=== PATIENT | female | born 1935 | race Caucasian/White ===

== ENCOUNTER 2016-08-02 07:00 | Day surgery (SDC) | payer OTHER, MEDICARE ==
[2016-08-02 07:44] VITALS: BMI 23.2
[2016-08-02 08:48] VITALS: TEMP 97.6
[2016-08-02 12:18] VITALS: BP 149/78; PULSE 78
--- NOTE | 2016-08-03 13:40 | PATH ---
Surgical Pathology Report Patient Name: RICARDO BIRCH [facility]. Rec. #: [id number] /Age/Gender: 1935 (Age: 81) / F Account: [id number] Location: U-ENDOSCOPY Taken: 08/02/2016 Received: 08/02/2016 Reported: 08/03/2016 Physicians: Lela Cox M.D. Specimen(s) Received BX SITE OF PREVIOUS ADENOMA Clinical History Adenoma surveillance Diverticulosis Final Diagnosis COLON, PREVIOUS ADENOMA BIOPSY SITE, BIOPSY: FRAGMENTS OF COLONIC MUCOSA WITH SURFACE HYPERPLASTIC CHANGE AND LAMINA PROPRIA FIBROSIS, SUGGESTIVE OF SCAR FORMATION. NO ADENOMA/DYSPLASIA IDENTIFIED. Electronically Signed Jose Cruz Gallego M.D. Gross Description Received in formalin, labeled "biopsy site of previous adenoma" are 3 figueroa, irregular portions of soft tissue ranging from 0.1-0.3 cm in greatest dimension. The specimens are submitted in toto in one cassette. /08/02/201608/02/2016
== END 2016-08-02 12:30 | disposition home or self-care (01) ==
LOC: JASU-ENDO 07:00
PROVIDERS: ATTEND Internal Medicine Gastroenterology
PROC: 0DBP8ZX Excision of Rectum, Via Natural or Artificial Opening Endoscopic, Diagnostic (ICD-10-PCS; principal; 2016-08-02 08:00)
DX: Z86.010 Personal history of colon polyps (principal); K57.30 Diverticulosis of large intestine without perforation or abscess without bleeding; K63.89 Other specified diseases of intestine
CPT/HCPCS: 88305-TC